=== PATIENT | female | born 1985 | race Caucasian/White ===

== ENCOUNTER → 2022-11-26 10:09 | Outpatient (BNVA) | payer BC, SELFPAY | PROVIDERS: PCP Obstetrics & Gynecology; Visit Provider Internal Medicine Rheumatology | DX: M19.90 Unspecified osteoarthritis, unspecified site (principal); Z79.899 Other long term (current) drug therapy; Z11.1 Encounter for screening for respiratory tuberculosis; Z11.59 Encounter for screening for other viral diseases | CPT/HCPCS: 36415; 80076; 82306; 82565; 83520; 85025; 86038; 86200; 86431; 86480; 86704; 86803; 87340 ==